=== PATIENT | female | born 1960 | race African-American/Black ===

== ENCOUNTER 2019-11-07 08:53 | Emergency (ER) | payer SELFPAY ==
[~2019-11-07] VITALS: Ht 162.6 cm; Wt 62.6 kg
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
== END 2019-11-07 09:54 | disposition home or self-care (01) ==
LOC: ER 08:53
DX: I10 Essential (primary) hypertension (principal); Z82.49 Family history of ischemic heart disease and other diseases of the circulatory system; Z76.0 Encounter for issue of repeat prescription
CPT/HCPCS: 99282